=== PATIENT | male | born 1995 | race Caucasian/White ===

== ENCOUNTER 2020-05-29 07:52 | Inpatient (IN) ==
[2020-05-29 08:33] LABS: Basophils # 0.1 K/mcL (0.0-0.2); Basophils % 0.7 %; Eosinophils # 0.2 K/mcL (0.0-0.6); Hemoglobin 16.9 g/dL (12.9-16.9); Immature Granulocytes % 0.8 % (0-4); Lymphocytes # 2.8 K/mcL (0.6-4.6); Lymphocytes % 24.1 %; Mean Corpuscular HGB Conc 33.8 g/dL (31.6-35.5); Mean Corpuscular Volume 88.7 fL (83.0-100.0); Mean Platelet Volume 11.2 fL (9.4-12.4); Monocytes # 1.3 K/mcL (0.0-1.3); Monocytes % 11.1 %; Neutrophils # 7.1 K/mcL (1.6-8.9); Platelet Count 217 K/mcL (140-400); Red Blood Count 5.64 M/mcL (4.19-5.50); Segmented Neutrophils % 61.3 %; White Blood Count 11.6 K/mcL (4.3-11.1)
[2020-05-29 08:48] LABS: Acetaminophen < 10 mcg/mL (10-20); BUN/Creatinine Ratio 13 (6-26); Blood Urea Nitrogen 12 mg/dL (6-20); Calcium 9.2 mg/dL (8.6-10.3); Carbon Dioxide 27 mEq/L (23-29); Chloride 104 mEq/L (98-107); Chol/HDL Ratio 5.1 (0-4.9); Cholesterol 189 mg/dL (< 200); Ethanol 70 mg/dL (Less than 10); Glucose 96 mg/dL (70-105); HDL Cholesterol 37 mg/dL (40-59); LDL Cholesterol,Calculated 96 mg/dL (< 100); Osmolality,Calculated 290 (280-300); Potassium 3.6 mEq/L (3.5-5.1); Salicylate < 2.5 mg/dL (15.0-30.0); Sodium 140 mEq/L (136-145); Triglycerides 280 mg/dL (< 150); eGFR For African Americans > 60 (> 60); eGFR For Non-African Americans > 60 (> 60)
[2020-05-29 09:40] LABS: Estimated Average Glucose 97 mg/dl
[2020-05-29 10:47] LABS: Bilirubin,Urine Negative (Negative); Blood,Urine Negative (Negative); Clarity,Urine Clear (Clear); Color,Urine Colorless (Yellow); Glucose,Urine (UA) Normal (Normal); Ketones,Urine Negative (Negative); Leukocyte Esterase,Urine Negative (Negative); Nitrite,Urine Negative (Negative); Protein,Urine Negative (Neg-Trace); Specific Gravity,Urine 1.009 (1.010-1.025); Urobilinogen,Urine Normal (Normal)
[2020-05-29 11:12] LABS: Amphetamine Screen,Urine Negative ng/mL (Cutoff=1000); Barbiturate Screen,Urine Negative ng/mL (Cutoff=200); Benzodiazepines Screen,Urine Negative ng/mL (Cutoff=200); Cannabinoid Screen,Urine Positive ng/mL (Cutoff = 50); Cocaine Screen,Urine Negative ng/mL (Cutoff= 300); Opiate Screen,Urine Negative ng/mL (Cutoff=300); Phencyclidine Screen,Urine Negative ng/mL (Cutoff=25)
[2020-05-29] MEDS ORDERED: Naloxone 0.4 MG/ML INJ IVP PRN (16:12)
[2020-05-29] MEDS ORDERED: *HR* HYDROcodone/Acet 5/325 mg TABLET PO PRN (16:12)
[2020-05-29] MEDS ORDERED: *HR* LORazepam 2 MG/ML VIAL IVP PRN ×2 (16:12)
[2020-05-29] MEDS ORDERED: 0.9 % Sodium Chloride 1,000 ML ONE (16:49)
[2020-05-29] MEDS: 0.9 % Sodium Chloride 1,000 ML IVC SCH (16:55)
[2020-05-29 17:05] LABS: Magnesium 1.8 mg/dL (1.6-2.6); Phosphorous 2.4 mg/dL (2.7-4.5)
[2020-05-29] MEDS: *HR* LORazepam 2 MG/ML VIAL IVP PRN (18:23)
[2020-05-30] MEDS: 0.9 % Sodium Chloride 1,000 ML IVC SCH (05:34)
[2020-05-30 06:37] LABS: Hematocrit 45.1 % (37.5-50.1); Mean Corpuscular HGB Conc 33.5 g/dL (31.6-35.5); Mean Corpuscular Volume 89.5 fL (83.0-100.0); Mean Platelet Volume 11.2 fL (9.4-12.4); Platelet Count 183 K/mcL (140-400); Red Blood Count 5.04 M/mcL (4.19-5.50); Red Cell Distribution Width 12.8 % (11.5-14.5); White Blood Count 9.2 K/mcL (4.3-11.1)
[2020-05-30 06:38] LABS: Hemoglobin 15.1 g/dL (12.9-16.9)
[2020-05-30 07:04] LABS: BUN/Creatinine Ratio 13 (6-26); Blood Urea Nitrogen 13 mg/dL (6-20); Calcium 8.7 mg/dL (8.6-10.3); Carbon Dioxide 29 mEq/L (23-29); Chloride 105 mEq/L (98-107); Ethanol < 10 mg/dL (Less than 10); Glucose 96 mg/dL (70-105); Magnesium 1.8 mg/dL (1.6-2.6); Osmolality,Calculated 284 (280-300); Phosphorous 2.5 mg/dL (2.7-4.5); Potassium 3.7 mEq/L (3.5-5.1); Sodium 137 mEq/L (136-145); eGFR For African Americans > 60 (> 60); eGFR For Non-African Americans > 60 (> 60)
[2020-05-30] MEDS: Nicotine 21 MG PATCH.TD24 TD SCH (07:55)
[2020-05-30] MEDS: Vitamin B Complex/Vit C/Vit E 1 EACH TABLET PO SCH (07:56)
[2020-05-30] MEDS: Folic Acid 1 MG TABLET PO SCH (07:56)
[2020-05-30] MEDS: Thiamine (B-1) 100 MG TABLET PO SCH (07:56)
[2020-05-30] MEDS: *HR* LORazepam 2 MG/ML VIAL IVP PRN ×3 (13:49→23:54)
[2020-05-30] MEDS: Melatonin 3 MG TABLET PO PRN (23:54)
[2020-05-31 01:53] LABS: Albumin/Globulin Ratio 1.3 (1.1-2.2); Bilirubin,Direct 0.1 mg/dL (0.0-0.2); Bilirubin,Indirect 0.6 mg/dL (0.0-1.0); Bilirubin,Total 0.7 mg/dL (0.3-1.0)
[2020-05-31] MEDS: Thiamine (B-1) 100 MG TABLET PO SCH (08:36)
[2020-05-31] MEDS: Vitamin B Complex/Vit C/Vit E 1 EACH TABLET PO SCH (08:36)
[2020-05-31] MEDS: Nicotine 21 MG PATCH.TD24 TD SCH (08:36)
[2020-05-31] MEDS: Folic Acid 1 MG TABLET PO SCH (08:36)
[2020-05-31] MEDS: Acetaminophen 325 MG TABLET PO PRN ×2 (08:39→14:39)
[2020-05-31] MEDS: Ondansetron 4 MG/2 ML VIAL IVP PRN (14:18)
[2020-05-31] MEDS ORDERED: *HR* HYDROcodone/Acet 5/325 mg TABLET PO ONE (16:17)
[2020-05-31] MEDS: Melatonin 3 MG TABLET PO PRN (20:06)
[2020-05-31] MEDS ORDERED: hydrOXYzine pamoate 25 MG CAPSULE PO ONE (21:17)
[2020-06-01] MEDS: Acetaminophen 325 MG TABLET PO PRN ×3 (01:58→17:05)
[2020-06-01 02:43] LABS: Albumin 4.5 g/dL (3.5-5.7); Albumin/Globulin Ratio 1.5 (1.1-2.2); Bilirubin,Direct 0.1 mg/dL (0.0-0.2); Bilirubin,Indirect 0.8 mg/dL (0.0-1.0); Bilirubin,Total 0.9 mg/dL (0.3-1.0); Globulin 3.1 g/dL (2.4-3.5); Total Protein 7.6 g/dL (6.4-8.9)
[2020-06-01] MEDS: Nicotine 21 MG PATCH.TD24 TD SCH (09:03)
[2020-06-01] MEDS: Vitamin B Complex/Vit C/Vit E 1 EACH TABLET PO SCH (09:04)
[2020-06-01] MEDS: Naltrexone HCl 50 MG TABLET PO SCH (09:04)
[2020-06-01] MEDS: Folic Acid 1 MG TABLET PO SCH (09:04)
[2020-06-01] MEDS: Thiamine (B-1) 100 MG TABLET PO SCH (09:04)
[2020-06-01] MEDS ORDERED: Ketorolac 15 MG/ML VIAL IVP ONE (10:41)
[2020-06-01] MEDS: Ondansetron 4 MG/2 ML VIAL IVP PRN (13:33)
[2020-06-01] MEDS ORDERED: Prochlorperazine 10 MG/2 ML VIAL IVP ONE (19:27)
[2020-06-02] MEDS: Vitamin B Complex/Vit C/Vit E 1 EACH TABLET PO SCH (07:59)
[2020-06-02] MEDS: Folic Acid 1 MG TABLET PO SCH (07:59)
[2020-06-02] MEDS: Nicotine 21 MG PATCH.TD24 TD SCH (07:59)
[2020-06-02] MEDS: Thiamine (B-1) 100 MG TABLET PO SCH (07:59)
[2020-06-02] MEDS ORDERED: polyethylene glycoL 3350 17 GM POWD.PACK PO PRN (09:15)
[2020-06-02] MEDS: Acetaminophen 325 MG TABLET PO PRN ×2 (09:19→19:46)
[2020-06-02] MEDS: Naltrexone HCl 50 MG TABLET PO SCH (09:20)
[2020-06-02] MEDS ORDERED: *HR* LORazepam 0.5 MG TABLET PO ONE (18:10)
[2020-06-03] MEDS: Thiamine (B-1) 100 MG TABLET PO SCH (08:32)
[2020-06-03] MEDS: Folic Acid 1 MG TABLET PO SCH (08:32)
[2020-06-03] MEDS: Vitamin B Complex/Vit C/Vit E 1 EACH TABLET PO SCH (08:32)
[2020-06-03] MEDS: Nicotine 21 MG PATCH.TD24 TD SCH (08:47)
[2020-06-03] MEDS: Naltrexone HCl 50 MG TABLET PO SCH (09:14)
[2020-06-03] MEDS: Acetaminophen 325 MG TABLET PO PRN (21:16)
[2020-06-03] MEDS: Melatonin 3 MG TABLET PO PRN (23:04)
[2020-06-04 06:48] VITALS: BP 127/73
[2020-06-04] MEDS: Thiamine (B-1) 100 MG TABLET PO SCH (09:10)
[2020-06-04] MEDS: Folic Acid 1 MG TABLET PO SCH (09:10)
[2020-06-04] MEDS: Vitamin B Complex/Vit C/Vit E 1 EACH TABLET PO SCH (09:10)
[2020-06-04] MEDS: Nicotine 21 MG PATCH.TD24 TD SCH (09:10)
[2020-06-04] MEDS: Naltrexone HCl 50 MG TABLET PO SCH (10:08)
== END 2020-06-04 12:27 | disposition home or self-care (01) | DRG 775 ==
LOC: EMEROOARM 07:52 → 3BNU 07:52 → SUATTDRO 16:10 → 3BNU 06-03 20:38
PROVIDERS: ADMIT Internal Medicine; ATTEND Nurse Practitioner